=== PATIENT | male | born 1985 | race African-American/Black ===

== ENCOUNTER 2016-09-23 01:10 | Emergency (ER) | payer SELFPAY ==
[2016-09-23 01:19] VITALS: BP 139/77
[2016-09-23] MEDS ORDERED: EPINEPHRINE INJ/PF 1 MG/1 ML AMPULE IM PRN (02:00)
--- NOTE | 2016-09-23 02:07 | ER Document Report ---
HPI - HPI Patient complains to provider of: allergic reaction Onset: Yesterday Onset/Duration: Sudden Severity: Severe - itchy Pain Level: 5 Context: Patient presents to emergency department with reports of allergic reaction. He reports yesterday while he was at work his right arm started itching with a scattered rash. He went to the emergency department in [facility] and was treated with a steroid injection, hydroxyzine, pepcid and a steroid Dosepak. He reports the rash has now spread to his stomach and back. He reports he took a hot oatmeal bath and is itching more. He took his temperature prior to arrival reports a temperature of 102 although he did not take anything for that fever and his temperature now is 98.8. Denies allergies to anything that he knows of. Denies new medications, laundry soap, bath soap. Reports no other family members with rash. Patient is speaking in a clear voice. He denies trouble breathing. Reports this has never happened to him before. Associated Symptoms: None - DERM Skin Color: Normal Past Medical History - General Information source: Patient - Social History Smoking Status: Unknown if Ever Smoked Cigarette use (# per day): No Frequency of alcohol use: None Drug Abuse: None Family History: Reviewed & Not Pertinent Patient has suicidal ideation: No Patient has homicidal ideation: No - Medical History Medical History: Negative Renal/ Medical History: Denies: Hx Peritoneal Dialysis Surgical Hx: Negative Vertical Provider Document - CONSTITUTIONAL Agree With Documented VS: Yes Exam Limitations: No Limitations General Appearance: WD/WN, No Apparent Distress - nontoxic looking - HEENT HEENT: Atraumatic, Normocephalic, PERRLA. negative: Pharyngeal Erythema - NECK Neck: Normal Inspection, Supple. negative: Lymphadenopathy-Left, Lymphadenopathy-Right - RESPIRATORY O2 Sat by Pulse Oximetry: 98 - CARDIOVASCULAR Cardiovascular: Regular Rate, Regular Rhythm - GI/ABDOMEN Gastrointestinal: Abdomen Soft, Abdomen Non-Tender - MUSCULOSKELETAL/EXTREMETIES Musculoskeletal/Extremeties: MALACHI DENNIS - NEURO Level of Consciousness: Awake, Alert, Appropriate Motor/Sensory: No Motor Deficit - DERM Integumentary: Warm, Dry, Rash - scattered macularpapular rash to bilateral arms and trunk. no open sores/lesions/wounds. Course - Re-evaluation Re-evalutation: 09/23/16 02:08 Patient has been treated with standard allergic reaction medications will give epi to treat his symptoms. He was also instructed to continue to take his medications as prescribed. 09/23/16 02:27 epi given, patient falling asleep on exam bed, aroused easily, reports he thinks his left arm is better. Patient is speaking in a clear voice no difficulty swallowing or trouble breathing. Patient was instructed to continue all medications and return to the emergency department for trouble swallowing or concerns. He verbalized understanding to all instructions. - Vital Signs Vital signs: Temp Pulse Resp BP Pulse Ox 98.8 F 105 H 16 139/77 H 98 09/23/16 01:15 09/23/16 01:15 09/23/16 01:15 09/23/16 01:15 09/23/16 01:15 Discharge - Discharge Clinical Impression: allergic reaction, Elevated blood pressure reading Condition: Stable Disposition: HOME, SELF-CARE Instructions: Contact Dermatitis ([facility]), Acute Allergic Reaction ([facility]), Use of Diphenhydramine, Epinephrine Additional Instructions: *You have been treated for an allergic reaction, dermatitis, elevated blood pressure reading *Take medication as prescribed *Monitor your skin for signs of worsening reaction *Avoid hot showers, do not itch *Follow up with a primary care provider within 3 days for recheck *Return to ED for worsening condition, changes, needs Monitor your blood pressure. Your blood pressure was elevated today. This may be because you were anxious, in pain or because you need medication. It is important to follow up with your primary care provider for full evaluation. Forms: Elevated Blood Pressure
== END 2016-09-23 02:10 | disposition home or self-care (01) ==
LOC: ER 01:10
DX: L23.9 Allergic contact dermatitis, unspecified cause (principal); R03.0 Elevated blood-pressure reading, without diagnosis of hypertension
CPT/HCPCS: 99282; 96372; J0171